=== PATIENT | male | born 1960 | race African-American/Black ===

== ENCOUNTER 2019-11-09 09:16 | Emergency (ER) | payer OTHER ==
[~2019-11-09] VITALS: Ht 177.8 cm; Wt 140.6 kg
[2019-11-09 12:44] VITALS: BP 168/62
== END 2019-11-09 12:44 | disposition home or self-care (01) ==
LOC: ER 09:16
DX: J02.9 Acute pharyngitis, unspecified (principal); I10 Essential (primary) hypertension